=== PATIENT | male | born 1960 | race Caucasian/White ===

== ENCOUNTER 2023-02-23 12:30 | Day surgery (SDC) | payer OTHER, SELFPAY ==
[2023-02-20 12:09] VITALS: BMI 26.1
[2023-02-23] VITALS (8 sets, daily range): BP systolic 153–164; BP diastolic 87–108; PULSE 72–89; RESP 11–18; TEMP 36.3–36.5; O2SAT 90–96; BMI 25.8
--- NOTE | 2023-02-23 | DI.RAD.S_ITS ---
PROCEDURE: XR FOOT RT 2V INDICATIONS: SURG TECHNIQUE: 2 intraoperative views of the foot were acquired. COMPARISON: None. FINDINGS: Two intraoperative images of percutaneous fixation of the 2nd phalanx of the right foot are provided for nondiagnostic interpretation. There is a dorsal surgical plate and screw fixation of the 1st proximal phalanx. Please see operative report for details. IMPRESSION: Two intraoperative images of percutaneous fixation of the 2nd phalanx of the right foot. Please see operative report for details. Dictated by: Natalie Jasso M.D. on 02/24/2023 at 12:08 Approved by: Natalie Jasso M.D. on 02/24/2023 at 12:10
[2023-02-23] MEDS: ACETAMINOPHEN 325 MG TABLET 975 MG PO (13:30)
[2023-02-23] MEDS: LACTATED RINGERS 1,000 ML 42 ML IV ×3 (13:31→19:44)
--- NOTE | 2023-02-23 16:10 | PM.PREOP ---
Pre-operative Note Interval Note History & Physical reviewed/Exam performed by Physician: Yes Changes to H&P: No
--- NOTE | 2023-02-23 16:10 | PM.OP.1 ---
Operative Date/Time/Diagnoses Date of procedure: 02/23/23 Time of procedure: 16:10 Pre-op diagnosis: Right great toe joint arthritis, bunion, and second hammertoe Post-op diagnosis: same Procedure & Clinicians Procedure: 1. Right first metatarsophalangeal arthrodesis 2. Right second proximal and distal interphalangeal joint arthrodesis 3. Right second metatarsal osteotomy Same procedure as scheduled: Yes Indications: 63-year-old male with arthritis and pain to the right great toe joint as well as contraction of hammertoe to the 2nd toe. Conservative measures have failed to alleviate his pain and he wished to have surgical intervention at this time. We spoke with the risks and potential complications as well as expected outcomes and alternatives. Consent was signed and there were no contraindications to the procedure at this time. 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 A tourniquet was placed about the patient's right thigh. After induction of general anesthesia the right foot and ankle were prepped and draped in the usual aseptic manner. The tourniquet was inflated. 1. Incision was made over the dorsal aspect of the right 1st metatarsophalangeal joint. The incision was deepened through subcutaneous tissues being careful to identify and retract all vital neurovascular structures. All bleeders were cauterized and ligated necessary. A significant amount of thick capsular tissue was noted to the joint. When the capsule was entered, a large amount of clear joint fluid came out of the dorsal aspect, consistent with elements of a ganglion cyst. 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 A sample was taken for crystal analysis. It was also somewhat firm in areas which could be bony deposition, or chronic synovitis. The head of the metatarsal was flattened, multiple spurs dorsal head and minimal joint cartilage remained. More cartilage was remaining on the base of the proximal phalanx which was beginning the flattening. The head of the metatarsal articular surface actually appeared to be contoured into an abducted manner, like a nursing home reformation of the joint adjusting based on the pull. A saw was used to resect the medial eminence enlargement as well as some of the more prominent areas of spurring at the dorsal 1st metatarsophalangeal joint. Medially a bone cyst was found in plantar medial aspect. It was evauated upon medial eminence resection and appeared to have some degenerative fluid in it, then was hollow. It measured about 3-4 mm in diameter and depth. No surrounding pathological fractures. Saw was used to resect remaining cartilage on either side of joint. This was done at an angle to allow the alignment to be as straight as possible, but without shortening the toe very significantly, I needed to leave a little abduction in the great toe joint. Subchondral drilling was performed to either side with the guidewire as well as some fish scaling using a small osteotome. The area was irrigated with copious amount of normal sterile saline. Temporary fixation across the joint was placed with a guidewire and this was checked under C-arm to be in appropriate alignment. A plate was chosen and any further reduction of prominences dorsally was performed with a rasp and rongeur. Using the aid of fluoroscopy, the guide wire was used as cannulation for the drill for a lag screw from the distal medial to proximal lateral 1st metatarsal phalangeal joint. Confirmed appropriate in all 3 planes, a partially threaded screw was placed and the guidewire removed. Good strength and reduction of the former joint. Plate was placed and with the aid of fluoroscopy a series of locking screws and a nonlocking screw were placed across the plate and steadied the joint well. This was checked on C-arm. The area is irrigated with copious amounts normal sterile saline. 2. Next, attention was directed to the 2nd metatarsal head where an incision was made over the dorsal 2nd metatarsophalangeal joint. The incision was deepened through subcutaneous tissues being careful to identify and retract all vital neural and vascular structures. All bleeders were cauterized and ligated as necessary. Once the capsule was entered the metatarsal head and neck were exposed and using the aid of C-arm, a saw was used to make an osteotomy in the dorsal head of the metatarsal and pushed back proximally to a point where there was more of an equal parabola of length. This was temporarily fixated with a guidewire and then using standard AO technique, a 2.0 screw was placed across this. Guidewire was removed this was checked under C-arm and strength was good as well as compression. Excess bone/cartilage was removed from distal tip of head. Incision was made over the second toe distal and proximal interphalangeal joints dorsally. The incision was deepened through subcutaneous tissues being careful to identify and retract all vital neural and vascular structures. All bleeders were cauterized and ligated as necessary. A transection of the extensor tendon at the proximal and distal interphalangeal joints was performed. A saw was used to resect the base of the distal and intermediate phalanges and the head of the intermediate and proximal phalanges. A curette was used to further remove any of the lingering cartilaginous tissue from either surface and the areas were irrigated with copious amounts of normal sterile saline. Under the aid of C-arm, the k-wire was placed in the base of the intermediate phalanx and out the distal tip of the toe. This was retrograded back across the proximal phalanx. This closed down the joints with good apposition, and k-wire was checked for placement under mini C-arm in all three planes. Excess distal wire was removed after careful bending as it exited the toe, and pin cap was placed. Tourniquet was deflated, a prompt hyperemic response was seen to the foot. The areas were all irrigated again with copious amounts of normal sterile saline. The extensor tendon was repaired using 4-0 Vicryl to the second toe. DBM 1 cc bone putty was placed in the medial first metatarsal head cyst and packed well, and the remainder in the small crevice allowed laterally at the joint fusion site due to the alignment. Subcutaneous closure using Vicryl as well. Nylon was used to close the skin. The tip of toe where the wire was exiting was dressed with triple antibiotic ointment. A lightly compressive dressing was placed on the foot and she was placed in stockinette and postsurgical boot and transferred to the PACU with vital signs stable. Complications: none Post-operative Condition: stable Disposition: PACU Plan for aftercare: Following a period of postoperative monitoring, the patient will be discharged to home on written and oral postoperative instructions including keeping the dressing dry and intact, no weight to the surgical foot, icing and elevating the foot when seated home. DVT prevention techniques have been reviewed. For the 1st postoperative visit the dressing will be changed and close to the 4th postoperative week we will likely take first weight bearing foot x-rays.
[2023-02-23] MEDS: CEFAZOLIN 2 GM/100 ML PREMIX 100 ML IV (16:35)
--- NOTE | 2023-02-23 16:55 | SUR.OPER ---
Supine on padded OR bed, head on pillow, arms secured on padded arm boards at <90 degrees abduction, legs uncrossed, safety belt at waist , tape over blanket over lower left leg, right leg draped free with gel bump under right hip.
[2023-02-23] MEDS: BUPIVACAINE 0.5% (PF) 30 ML VIAL INJ (17:13)
[2023-02-23] MEDS: NEOMYCIN/POLYMYXIN/BACITRA UD OINT 1 EACH TOP (19:15)
[2023-02-23] MEDS: HYDROCODONE/ACET 5/325 TABLET 1 TAB PO (19:57)
[2023-02-23] MEDS: ONDANSETRON 4 MG/2 ML INJ IV (19:57)
== END 2023-02-23 20:40 | disposition home or self-care (01) ==
PROVIDERS: PCP Family Medicine; Referring Provider Podiatrist; Visit Provider Podiatrist
PROC: (CPT 28308; principal; 2023-02-23 13:45)
DX: M20.21 Hallux rigidus, right foot (principal); M19.071 Primary osteoarthritis, right ankle and foot; M20.41 Other hammer toe(s) (acquired), right foot; M79.674 Pain in right toe(s)
CPT/HCPCS: 28308; 28285; 28750; 73620; 76000; 89060; J0690; J1100; J1170; J1885; J2250; J2405; J2704; J3010